=== PATIENT | male | born 1985 | race Caucasian/White ===

== ENCOUNTER 2016-11-03 07:00 | Emergency (ER) | payer BC, OTHER ==
[~2016-11-03] VITALS: Ht 175.3 cm; Wt 88.5 kg
[2016-11-03] MEDS ORDERED: KETOROLAC 30 MG/ML VIAL (J1885) IM ONE (07:45)
--- NOTE | 2016-11-03 08:15 | REP ---
Clinical: Trauma. Swelling. Technique: AP, lateral, bilateral oblique views of the right elbow. Findings: Fractures involving the radial head and olecranon process are appreciated with overlying soft tissue swelling and joint effusion/hemarthrosis other more subtle injuries cannot be excluded due to positioning. Impression: Acute fractures involving the olecranon process and radial head with swelling and effusion. Signed by Delmar Limon MD 11/03/2016 08:06 A
[2016-11-03] MEDS ORDERED: MOTR200T44 PO (08:26)
[2016-11-03] MEDS ORDERED: NORCOTAB PO (08:26)
[2016-11-03 08:40] VITALS: BP 133/88
== END 2016-11-03 08:58 | disposition home or self-care (01) ==
LOC: M ED 08:24
DX: S52.034A Nondisplaced fracture of olecranon process with intraarticular extension of right ulna, initial encounter for closed fracture (principal); W17.89XA Other fall from one level to another, initial encounter; Y92.89 Other specified places as the place of occurrence of the external cause; Y93.89 Activity, other specified; Y99.0 Civilian activity done for income or pay
CPT/HCPCS: 29125; 73080; 96372; 99282; J1885